=== PATIENT | male | born 1945 | race Caucasian/White ===

== ENCOUNTER 2016-09-20 20:28 | Observation (INO) ==
[2016-09-20 21:02] LABS: Basophils % 0.7 %; Eosinophils # 0.5 K/mcL (0.0-0.6); Eosinophils % 11.1 %; Hematocrit 38.4 % (37.5-50.1); Hemoglobin 13.1 g/dL (12.9-16.9); Immature Granulocytes % 0.5 % (0-4); Lymphocytes # 1.3 K/mcL (0.6-4.6); Lymphocytes % 30.4 %; Mean Corpuscular HGB Conc 34.1 g/dL (31.6-35.5); Mean Corpuscular Hemoglobin 30.7 pg (28.0-33.3); Mean Corpuscular Volume 89.9 fL (83.0-100.0); Mean Platelet Volume 9.5 fL (9.4-12.4); Monocytes # 0.3 K/mcL (0.0-1.3); Neutrophils # 2.2 K/mcL (1.6-8.9); Platelet Count 218 K/mcL (140-400); Red Blood Count 4.27 M/mcL (4.19-5.50); Red Cell Distribution Width 13.2 % (11.5-14.5); Segmented Neutrophils % 51.3 %
[2016-09-20 21:11] LABS: Activated Partial Thrombo Time 31.1 Seconds (26.0-36.0)
--- NOTE | 2016-09-20 21:13 | Emergency Department Note ---
Disposition Clinical Impression: Acute exacerbation of chronic obstructive airways disease Disposition: Admitted As Inpatient Condition: Good Time of Disposition: 21:33 (zia obsv) SOB HPI - General Chief Complaint: ED Shortness of Breath/Dyspnea Stated Complaint: shortness of breath Time Seen by Provider: 09/20/16 20:29 Source: patient, family Mode of arrival: ambulatory Limitations: no limitations Nursing Notes Reviewed: Yes Vital Signs Reviewed: Yes - History of Present Illness Increasing short of breath cough and congestion he was seen earlier this week and been diagnosed with bronchitis early pneumonia but unfortunately was unable take steroids or did not want take steroids because of potential risk of causing hyperglycemia as result the patient though had increasing shortness of breath he has tried outpatient therapy and is failed he is having cough congestion sputum production no diarrhea no melena no dyspnea with activity Pain no tenderness noted Patient done is instructed return to the ER if worsening of condition Pt Subjective Complaint: shortness of breath Onset (ago): day(s) (2) Context: recent illness Severity: none Consistency/Duration: constant Improves with: nothing Worsens with: nothing Known history of: COPD Associated symptoms: Reports: fever, cough, wheezing, sputum production. Denies : chest pain, pain with inspiration, orthopnea, lower extremity pain, polyuria, polydipsia, parasthesias, palpitations, hemoptysis, diaphoresis, nausea/vomiting , syncope, abdominal pain, rash, sense of impending doom Treatment prior to arrival: none Cough present: Yes Cough Description: Non-Productive Cough Frequency: Intermittent Sputum production: Yes Sputum Amount: Small Sputum Color: Yellow - Related Data Home Medications Medication Instructions Recorded Confirmed Gabapentin [Neurontin] 600 mg PO BID 03/04/15 09/13/16 GlipiZIDE [Glucotrol] 5 mg PO 0800 03/04/15 09/13/16 Hydrocodone/Acetaminophen [[place] 1 tab PO Q6H PRN 03/04/15 09/13/16 5-325 Tablet] Liraglutide [Victoza 2-Nash] 1.2 mg SQ DAILY 03/04/15 09/13/16 Lisinopril [Zestril] 2.5 mg PO DAILY 03/04/15 09/13/16 Omeprazole [PriLOSEC] 20 mg PO DAILY 03/04/15 09/13/16 Paroxetine [Paxil] 30 mg PO DAILY 03/04/15 09/13/16 Terazosin [Hytrin] 2 mg PO HS 03/04/15 09/13/16 Oxygen 2 l NS AD 05/07/16 09/13/16 Albuterol Neb [Proventil Neb] 2.5 mg IH Q4H PRN 09/13/16 09/13/16 Albuterol Sulfate [Ventolin Hfa] 2 puff IH Q4H PRN 09/13/16 09/13/16 Atorvastatin [Lipitor] 40 mg PO HS 09/13/16 09/13/16 Fluticasone/Salmeterol [Advair 1 puff IH BID 09/13/16 09/13/16 500-50 Diskus] Pramipexole [Mirapex] 0.25 mg PO DAILY 09/13/16 09/13/16 Roflumilast [Daliresp] 500 mcg PO DAILY 09/13/16 09/13/16 Umeclidinium [place] [Incruse 1 puff IH DAILY 09/13/16 09/13/16 Ellipta] Allergies Allergy/AdvReac Type Severity Reaction Status Date / Time risperidone [From Risperdal] Allergy Drowsy Verified 05/07/16 11:36 tramadol Allergy Drowsy Verified 05/07/16 11:36 All systems ED: reviewed and negative except as stated. Constitutional: Denies: fever, chills, weakness Eyes: Denies: eye pain, eye discharge ENT ED: Denies: ear pain Cardiovascular: Denies: chest pain Respiratory: Reports: cough, dyspnea, wheezes, sputum production Gastrointestinal: Denies: abdominal pain, nausea, vomiting Genitourinary: Denies: urgency Musculoskeletal: Denies: back pain Integumentary: Denies: rash Neurological: Denies: headache Psychiatric: Denies: anxiety Endocrine: Denies: fatigue Hematological/Lymphatic: Denies: easy bleeding Allergic/Immunologic: Denies: facial swelling Past Medical History - Past Medical History Attestation: Yes The following information was validated with the patient. Source: patient, old records reviewed, nursing notes reviewed Medical history: Reports: arthritis, COPD, diabetes, fibromyalgia, GERD, hyperlipidemia, hypertension, osteoporosis, renal disease, other Surgical history: Reports: appendectomy, cholecystectomy, orthopedic, other ( Right carpal tunnel surgery.), prostatectomy (s/p TURP), other Psychiatric history: Reports: anxiety, depression, other - Social History Smoking Status: Heavy tobacco smoker Smokeless Tobacco Status: No Alcohol use: Reports: none Drug use: Reports: none Physical Exam - General Limitations: no limitations General appearance: alert, in no apparent distress, anxious - Head Head exam: atraumatic, normocephalic, normal inspection - Eye Eye exam: Present: normal appearance, PERRL, EOMI - ENT ENT exam: normal exam, normal oropharynx, mucous membranes moist, normal external ear exam - Neck Neck exam: Present: normal inspection, full ROM, trachea midline - Chest Chest inspection: Present: normal inspection, symmetric chest wall rise - Respiratory Respiratory exam: Present: wheezes, accessory muscle use, prolonged expiratory phase - Cardiovascular Cardiovascular exam: Present: regular rate, normal rhythm, normal heart sounds - Abdominal Exam Abdominal exam: Present: soft, Non-Tender, normal bowel sounds - Extremities Exam Extremities exam: Present: normal inspection, full ROM, normal capillary refill. Absent: tenderness, joint swelling - Back Exam Back exam: Present: normal inspection, full ROM. Absent: muscle spasm - Neurological Exam Neurological exam: Present: alert, oriented X3, CN II-XII intact - Psychiatric Psychiatric exam: Present: normal affect, normal mood - Skin Skin exam: Present: warm, dry, intact, normal color Course Course Narrative: Seen and examined her for observation antibodic and steroids Vital Signs Temperature 97.7 F 09/20/16 20:29 Pulse Rate 85 09/20/16 20:29 Respiratory Rate 20 09/20/16 20:29 Blood Pressure 142/80 09/20/16 20:29 O2 Sat by Pulse Oximetry 92 09/20/16 20:29 Temperature 98.7 F 09/20/16 21:30 Pulse Rate 80 09/20/16 21:30 Respiratory Rate 24 09/20/16 21:30 Blood Pressure 161/72 09/20/16 21:30 O2 Sat by Pulse Oximetry 94 09/20/16 21:30 Oxygen Delivery Oxygen Delivery Nasal Cannula Shortness of Breath/Dyspnea - Differential Diagnosis Likely: acute exacerbation of chronic obstructive airways disease - Medical Records Medical records reviewed: Yes I reviewed the patient's medical records. - Lab Data Lab results reviewed: Yes I reviewed the patient's lab results. Result diagrams: 09/20/16 20:54 09/20/16 20:54 Lab Results 09/20/16 09/20/16 09/20/16 Range/Units 20:54 20:54 20:54 WBC 4.2 L (4.3-11.1) K/mcL RBC 4.27 (4.19-5.50) M/mcL Hgb 13.1 (12.9-16.9) g/dL Hct 38.4 (37.5-50.1) % MCV 89.9 (83.0-100.0) fL MCH 30.7 (28.0-33.3) pg MCHC 34.1 (31.6-35.5) g/dL RDW 13.2 (11.5-14.5) % Plt Count 218 (140-400) K/mcL MPV 9.5 (9.4-12.4) fL Immature Gran % 0.5 (0-4) % Seg Neutrophils % 51.3 % Lymphocytes % 30.4 % Monocytes % 6.0 % Eosinophils % 11.1 % Basophils % 0.7 % Neutrophils # 2.2 (1.6-8.9) K/mcL Lymphocytes # 1.3 (0.6-4.6) K/mcL Monocytes # 0.3 (0.0-1.3) K/mcL Eosinophils # 0.5 (0.0-0.6) K/mcL Basophils # 0.0 (0.0-0.2) K/mcL PT 11.0 (9.4-12.1) Seconds INR 1.0 APTT 31.1 (26.0-36.0) Seconds Sodium 141 (136-145) mEq/L Potassium 4.2 (3.5-4.5) mEq/L Chloride 105 (98-109) mEq/L Carbon Dioxide 26 (19-29) mEq/L BUN 12 (8-26) mg/dL Creatinine 1.03 (0.72-1.25) mg/dL Est GFR ( Amer) > 60 (> 60) Est GFR (Non-Af Amer) > 60 (> 60) BUN/Creatinine Ratio 12 (6-26) Glucose 96 (70-99) mg/dL Calculated Osmolality 292 (280-300) Calcium 9.0 (8.6-10.8) mg/dL Urine Color (Yellow) Urine Clarity (Clear) Urine pH (5.0-8.0) pH Units Ur Specific [place] (1.010-1.025) Urine Protein (Neg-Trace) mg/dL Urine Glucose (UA) (Normal) mg/dL Urine Ketones (Negative) mg/dL Urine Blood (Negative) Urine Nitrite (Negative) Urine Bilirubin (Negative) Urine Urobilinogen (Normal) mg/dL Ur Leukocyte Esterase (Negative) Urine Microscopic RBC (0-3) per hpf Urine Microscopic WBC Ur Squamous Epith Cells (None-Few) per lpf Ur Culture Indicated? (NO) 09/20/16 Range/Units 21:46 WBC (4.3-11.1) K/mcL RBC (4.19-5.50) M/mcL Hgb (12.9-16.9) g/dL Hct (37.5-50.1) % MCV (83.0-100.0) fL MCH (28.0-33.3) pg MCHC (31.6-35.5) g/dL RDW (11.5-14.5) % Plt Count (140-400) K/mcL MPV (9.4-12.4) fL Immature Gran % (0-4) % Seg Neutrophils % % Lymphocytes % % Monocytes % % Eosinophils % % Basophils % % Neutrophils # (1.6-8.9) K/mcL Lymphocytes # (0.6-4.6) K/mcL Monocytes # (0.0-1.3) K/mcL Eosinophils # (0.0-0.6) K/mcL Basophils # (0.0-0.2) K/mcL PT (9.4-12.1) Seconds INR APTT (26.0-36.0) Seconds Sodium (136-145) mEq/L Potassium (3.5-4.5) mEq/L Chloride (98-109) mEq/L Carbon Dioxide (19-29) mEq/L BUN (8-26) mg/dL Creatinine (0.72-1.25) mg/dL Est GFR ( Amer) (> 60) Est GFR (Non-Af Amer) (> 60) BUN/Creatinine Ratio (6-26) Glucose (70-99) mg/dL Calculated Osmolality (280-300) Calcium (8.6-10.8) mg/dL Urine Color Yellow (Yellow) Urine Clarity Clear (Clear) Urine pH 6.0 (5.0-8.0) pH Units Ur Specific [place] 1.010 (1.010-1.025) Urine Protein Negative (Neg-Trace) mg/dL Urine Glucose (UA) Normal (Normal) mg/dL Urine Ketones Negative (Negative) mg/dL Urine Blood Trace-intact H (Negative) Urine Nitrite Negative (Negative) Urine Bilirubin Negative (Negative) Urine Urobilinogen Normal (Normal) mg/dL Ur Leukocyte Esterase Negative (Negative) Urine Microscopic RBC 3-5 H (0-3) per hpf Urine Microscopic WBC Test Not Performed Ur Squamous Epith Cells Few (None-Few) per lpf Ur Culture Indicated? NO (NO) - Radiology Data Radiology results reviewed: Yes I reviewed the patient's radiology results. Critical Care Time Critical Care Time: No
[2016-09-20 21:17] LABS: BUN/Creatinine Ratio 12 (6-26); Blood Urea Nitrogen 12 mg/dL (8-26); Carbon Dioxide 26 mEq/L (19-29); Chloride 105 mEq/L (98-109); Glucose 96 mg/dL (70-99); Osmolality,Calculated 292 (280-300); Potassium 4.2 mEq/L (3.5-4.5); Sodium 141 mEq/L (136-145); eGFR For African Americans > 60 (> 60); eGFR For Non-African Americans > 60 (> 60)
[2016-09-20 21:58] LABS: Bilirubin,Urine Negative (Negative); Blood,Urine Trace-intact (Negative); Clarity,Urine Clear (Clear); Color,Urine Yellow (Yellow); Glucose,Urine (UA) Normal (Normal); Ketones,Urine Negative (Negative); Leukocyte Esterase,Urine Negative (Negative); Nitrite,Urine Negative (Negative); Protein,Urine Negative (Neg-Trace); Urobilinogen,Urine Normal (Normal)
[2016-09-20 22:08] LABS: Squamous Epithelial Cell,Urine Few per lpf (None-Few)
[2016-09-20] MEDS ORDERED: Naloxone 0.4 MG/ML INJ IVP PRN (23:52)
[2016-09-20] MEDS ORDERED: NON-FORMULARY MEDICATION 1 EACH EACH (Oxygen [Oxygen] 2 L) NS SCH (23:52)
[2016-09-20] MEDS ORDERED: 0.9 % Sodium Chloride 1,000 ML IVC SCH (23:52)
[2016-09-20] MEDS ORDERED: Ondansetron 4 MG/2 ML VIAL IVP PRN (23:52)
[2016-09-20] MEDS ORDERED: *HR* Dextrose 50 % in Water (Syg) 50 ML SYRINGE IVP PRN (23:52)
[2016-09-20] MEDS ORDERED: D5% in Water 1,000 ML IVC PRN (23:52)
[2016-09-20] MEDS ORDERED: Albuterol 2.5 MG/3 ML NEBULIZER IH PRN (23:52)
[2016-09-20] MEDS ORDERED: Azithromycin 500 MG in D5% in Water 250 ML IVPB SCH (23:52)
[2016-09-20] MEDS ORDERED: *HR* HYDROcodone/Acet 5/325 mg TABLET PO PRN (23:52)
[2016-09-20] MEDS ORDERED: Dextrose Gel 15 GM PO PRN ×2 (23:52)
[2016-09-21] MEDS: Ipratropium/Albuterol Neb 3 ML IH SCH ×3 (01:07→11:29)
[2016-09-21 05:46] LABS: Basophils % 0.4 %; Eosinophils # 0.1 K/mcL (0.0-0.6); Eosinophils % 1.1 %; Hematocrit 40.9 % (37.5-50.1); Hemoglobin 13.8 g/dL (12.9-16.9); Immature Granulocytes % 0.7 % (0-4); Lymphocytes # 0.4 K/mcL (0.6-4.6); Lymphocytes % 6.2 %; Mean Corpuscular HGB Conc 33.7 g/dL (31.6-35.5); Mean Corpuscular Hemoglobin 30.5 pg (28.0-33.3); Mean Corpuscular Volume 90.3 fL (83.0-100.0); Monocytes # 0.1 K/mcL (0.0-1.3); Monocytes % 1.1 %; Neutrophils # 5.1 K/mcL (1.6-8.9); Platelet Count 222 K/mcL (140-400); Red Blood Count 4.53 M/mcL (4.19-5.50); Segmented Neutrophils % 90.5 %
[2016-09-21 05:55] LABS: Prothrombin Time 11.1 Seconds (9.4-12.1)
[2016-09-21 05:57] LABS: Activated Partial Thrombo Time 32.6 Seconds (26.0-36.0)
[2016-09-21 06:05] LABS: BUN/Creatinine Ratio 14 (6-26); Blood Urea Nitrogen 16 mg/dL (8-26); Carbon Dioxide 24 mEq/L (19-29); Chloride 103 mEq/L (98-109); Glucose 124 mg/dL (70-99); Osmolality,Calculated 293 (280-300); Potassium 4.2 mEq/L (3.5-4.5); Sodium 140 mEq/L (136-145); eGFR For African Americans > 60 (> 60); eGFR For Non-African Americans > 60 (> 60)
[2016-09-21] MEDS ORDERED: *HR* GlipiZIDE 5 MG TABLET PO SCH (08:00)
[2016-09-21] MEDS ORDERED: CefTRIAXone 1,000 MG in D5% in Water (Mini-Bag+) 100 ML IVPB SCH (09:00)
[2016-09-21] MEDS ORDERED: Gabapentin 300 MG CAPSULE PO SCH (09:00)
[2016-09-21] MEDS: Insulin LISPRO 300 UNITS/3 ML VIAL SQ SCH ×2 (09:31→12:22)
--- NOTE | 2016-09-21 14:27 | Internal Med History&Physical ---
Date of Encounter: 09/21/16 Time of Encounter: 14:00 Assessment and Plan (1) Acute exacerbation of chronic obstructive airways disease Current visit: Yes Status: Acute He was started on Rocephin, Zithromax, and Solu-Medrol through emergency room. Internal Medicine - H&P: HPI Chief complaint: Dyspnea Admitted From: Home Plans for Post Hospital Care: Home History of present illness: Mr. Brady is a 71 year old male who came to emergency room stating he had dyspnea onset 1 week previous. It had improved after he received treatment in emergency room September 13. It seemed to worsen again the evening of September 19. He came to emergency room and was evaluated and felt to have exacerbation of COPD. He was admitted to [facility] floor for ongoing care needs. He states his dyspnea has improved significantly and he feels back to his baseline. He states he has had a slight cough productive of occasional yellow sputum. His respiratory history significant for having smoked from age [age] up to 5 packs per day. He states he had PFTs at [facility] approximately 2002 but does not know results. He wears oxygen 24/7 for COPD. He thinks he has been tested for SIMON in the past but does not wear CPAP/BiPAP. He had chest CT August 2016 which showed no evidence of malignancy. Past Med Surg Social Fam HX - Past Medical History Medical history: arthritis, COPD, diabetes, fibromyalgia, GERD, hyperlipidemia, hypertension, osteoporosis, renal disease Psychiatric history: anxiety, depression, other - Past Surgical History Surgical History: appendectomy, cholecystectomy, prostatectomy - Social History Smoking Status: Heavy tobacco smoker Packs per day: 3 Smokeless Tobacco Status: No Alcohol use: none Drug use: none Internal Medicine - H&P: Meds Gabapentin [Neurontin] 600 mg PO BID 03/04/15 [History] GlipiZIDE [Glucotrol] 5 mg PO 0800 03/04/15 [History] Hydrocodone/Acetaminophen [[place] 5-325 Tablet] 1 tab PO Q6H PRN 03/04/15 [ History] Liraglutide [Victoza 2-Nash] 1.2 mg SQ DAILY 03/04/15 [History] Lisinopril [Zestril] 2.5 mg PO DAILY 03/04/15 [History] Omeprazole [PriLOSEC] 20 mg PO DAILY 03/04/15 [History] Paroxetine [Paxil] 30 mg PO DAILY 03/04/15 [History] Terazosin [Hytrin] 2 mg PO HS 03/04/15 [History] Oxygen 2 l NS AD 05/07/16 [History] Albuterol Neb [Proventil Neb] 2.5 mg IH Q4H PRN 09/13/16 [History] Albuterol Sulfate [Ventolin Hfa] 2 puff IH Q4H PRN 09/13/16 [History] Atorvastatin [Lipitor] 40 mg PO HS 09/13/16 [History] Fluticasone/Salmeterol [Advair 500-50 Diskus] 1 puff IH BID 09/13/16 [History] Pramipexole [Mirapex] 0.25 mg PO DAILY 09/13/16 [History] Roflumilast [Daliresp] 500 mcg PO DAILY 09/13/16 [History] Umeclidinium [place] [Incruse Ellipta] 1 puff IH DAILY 09/13/16 [History] Allergies risperidone [From Risperdal] Allergy (Verified 05/07/16 11:36) Drowsy tramadol Allergy (Verified 05/07/16 11:36) Drowsy All Systems PM: A 10-system review of systems was performed and is negative for pertinent findings except as documented above in the HPI. Review of systems: Gen.: His weight has decreased from approximately 96 kg at a February 2015 [facility] hospitalization to 83.461 kg today. Cardiovascular: He has history of hypertension but denies ND heart failure angina DVT or pulmonary embolus. He claims he had a heart catheter approximate 2008 which was unremarkable. Respiratory: As per history of present illness GI: He has been told he has an enlarged liver and he has occasional GERD symptoms. He is status post appendectomy and cholecystectomy. He denies disorder with his exocrine pancreas. : He has had hematuria in the past with urinary tract infections. He has BPH and had TUR approximately 2002. He has been diagnosed with CKD3 and follows with a nephrology practice in [place]. Neurologic: He denies large distribution strokes or seizures. Endocrine: He was diagnosed with DM 2 approximately 1997. He has hyperlipidemia and vitamin D deficiency but no known thyroid disease. Hematology oncology: He has had no history of blood disorders or cancers. He was found to be anemic in the emergency room February 2015 which has resolved [place] skeletal: He has a diagnosis of DJD and fibromyalgia. He is uncertain if he has osteoporosis. Psychiatric: He has a history of depression but no significant anxiety. - Constitutional Vitals: Temp Pulse Resp BP Pulse Ox 97.5 F L 80 18 108/57 95 09/21/16 11:25 09/21/16 11:25 09/21/16 11:25 09/21/16 11:25 09/21/16 11:25 Exam: Gen.: He is a well-developed well-nourished male who appears in no severe distress at present time HEENT: Head is atraumatic and normocephalic. Eyes: EOMI. There is no scleral icterus. Mouth: Mucosa is moist. Neck: Supple and nontender. There is no thyromegaly or adenopathy noted. Heart: Regular without murmurs gallops or ectopics Lungs: No wheezes or crackles are heard Abdomen: Soft and nontender. No masses or guarding noted. Has a well-healed longitudinal right paramedian surgical scar Extremities: There is no cyanosis edema or clubbing noted. Dorsalis pedis and posttibial pulses are 1-2 over 2 bilaterally. Neurologic: Mental status: He is talkative and a good historian. Cranial nerves : Smile is symmetric. Forehead wrinkles bilaterally. Tongue protrudes midline. EOMI. Motor: There is no pronator drift. Cerebellar: Finger to nose is intact bilaterally. Skin: Warm and dry Internal Med - H&P Results - Labs CBC & Chem 7: 09/21/16 05:00 09/21/16 05:00 Labs: Short CBC 09/21/16 Range/Units 05:00 WBC 5.6 (4.3-11.1) K/mcL Hgb 13.8 (12.9-16.9) g/dL Hct 40.9 (37.5-50.1) % Plt Count 222 (140-400) K/mcL Neutrophils # 5.1 (1.6-8.9) K/mcL BMP 09/21/16 05:00 Sodium 140 Potassium 4.2 Chloride 103 Carbon Dioxide 24 BUN 16 Creatinine 1.13 Glucose 124 H Calcium 9.0
--- NOTE | 2016-09-21 14:44 | Discharge Summary ---
Date of Encounter: 09/21/16 Time of Encounter: 14:00 - Discharge Diagnosis (1) Acute exacerbation of chronic obstructive airways disease Priority: Primary Status: Acute - Discharge Medications Prescriptions: Cefuroxime PO [Ceftin] 500 mg PO Q12HR #4 tablet Azithromycin [Zithromax] 250 mg PO DAILY #2 tablet Lactobacillus [Culturelle] 1 each PO BID #4 cap.[email or web address] Home Medications: Gabapentin [Neurontin] 600 mg PO BID 03/04/15 [History] GlipiZIDE [Glucotrol] 5 mg PO 0800 03/04/15 [History] Hydrocodone/Acetaminophen [[place] 5-325 Tablet] 1 tab PO Q6H PRN 03/04/15 [ History] Liraglutide [Victoza 2-Nash] 1.2 mg SQ DAILY 03/04/15 [History] Lisinopril [Zestril] 2.5 mg PO DAILY 03/04/15 [History] Omeprazole [PriLOSEC] 20 mg PO DAILY 03/04/15 [History] Paroxetine [Paxil] 30 mg PO DAILY 03/04/15 [History] Terazosin [Hytrin] 2 mg PO HS 03/04/15 [History] Oxygen 2 l NS AD 05/07/16 [History] Albuterol Neb [Proventil Neb] 2.5 mg IH Q4H PRN 09/13/16 [History] Albuterol Sulfate [Ventolin Hfa] 2 puff IH Q4H PRN 09/13/16 [History] Atorvastatin [Lipitor] 40 mg PO HS 09/13/16 [History] Fluticasone/Salmeterol [Advair 500-50 Diskus] 1 puff IH BID 09/13/16 [History] Pramipexole [Mirapex] 0.25 mg PO DAILY 09/13/16 [History] Roflumilast [Daliresp] 500 mcg PO DAILY 09/13/16 [History] Umeclidinium [place] [Incruse Ellipta] 1 puff IH DAILY 09/13/16 [History] Azithromycin [Zithromax] 250 mg PO DAILY #2 tablet 09/21/16 [Rx] Cefuroxime PO [Ceftin] 500 mg PO Q12HR #4 tablet 09/21/16 [Rx] Lactobacillus [Culturelle] 1 each PO BID #4 cap.sprink 09/21/16 [Rx] Allergies/Adverse Reactions: Allergies risperidone [From Risperdal] Allergy (Verified 05/07/16 11:36) Drowsy tramadol Allergy (Verified 05/07/16 11:36) Drowsy Date of admission: 09/20/16 22:35 Primary care physician: Perla Gao - Patient Status Disposition: Home, Self-Care Condition: Good Overall status at discharge: patient is progressing back to baseline - Discharge Instructions Follow Up With: Perla Gao MD [Primary Care Provider] - - Diet and Activity Activity: resume usual activities as tolerated Diet: advance to your usual diet Hospital course: Mr. Brady is a 71 year old male who came to emergency room stating he had dyspnea onset 1 week previous. It had improved after he received treatment in emergency room September 13. It seemed to worsen again the evening of September 19. He came to emergency room and was evaluated and felt to have exacerbation of COPD. He was admitted to [facility] for ongoing care needs. Initial orders were written by the emergency room physician. I saw him on September 21 and performed a history physical and discharge. He received Rocephin Zithromax, and Solu-Medrol through emergency room. When I saw him he stated his breathing was back to his baseline and denied any pain. He did not cough during examination. He wished to be discharged home which I felt was reasonable. He will follow with his PCP Dr. Gao within 1 week. I will give him 2 additional days of antibiotics and probiotic. - Time Spent with Patient Total time spent providing and/or coordinating discharge services: - Constitutional Vitals: Temp Pulse Resp BP Pulse Ox 97.5 F L 80 18 108/57 95 09/21/16 11:25 09/21/16 11:25 09/21/16 11:25 09/21/16 11:25 09/21/16 11:25
[2016-09-21] MEDS ORDERED: Azithromycin 500 MG in D5% in Water 250 ML IVPB SCH (23:00)
[2016-09-24 08:34] VITALS: BP 108/57
== END 2016-09-21 15:33 | disposition home or self-care (01) ==
LOC: EMEROOPIK 20:28 → INPPIK 20:28
PROVIDERS: ADMIT Internal Medicine; ATTEND Internal Medicine

== ENCOUNTER 2016-11-21 16:05 | Observation (INO) ==
[2016-11-21] MEDS ORDERED: Albuterol 2.5 MG/3 ML NEBULIZER IH ONE (16:21)
[2016-11-21] MEDS ORDERED: 0.9 % Sodium Chloride 1,000 ML IVC ONE (16:21)
[2016-11-21] MEDS ORDERED: Azithromycin 500 MG in D5% in Water 250 ML IVPB ONE (16:21)
[2016-11-21] MEDS ORDERED: methylPREDNISolone 125 MG/2 ML VIAL IVP ONE (16:21)
[2016-11-21] MEDS ORDERED: Ipratropium/Albuterol Neb 3 ML IH ONE ×3 (16:21→17:35)
--- NOTE | 2016-11-21 16:24 | Emergency Department Note ---
Disposition Clinical Impression: COPD with exacerbation, Acute exacerbation of chronic obstructive airways disease Disposition: Admitted As Inpatient Condition: Fair Referrals: Perla Gao MD [Primary Care Provider] - Forms: ED Satisfaction Letter Time of Disposition: 17:27 SOB HPI - General Chief Complaint: ED Shortness of Breath/Dyspnea Stated Complaint: MARGARITA Source: EMS Limitations: no limitations - History of Present Illness Patient presents to emergency department for evaluation of shortness of breath. He states that he is had a cough wheeze and shortness of breath for the past 2 weeks though it is worsened over the past 2 days. He states that the cough is productive of yellow sputum. He is also had wheezing. He denies associated chest pain nausea vomiting or diaphoresis. He denies lower extremity edema or calf discomfort. He denies history of DVT or PE. Denies recent antibiotic use her steroid use. His SPO2 is 86% on his home 2 L when EMS picked him up, they gave him a DuoNeb treatment and increases O2 to 3 L with improvement of his oxygen saturation. - Related Data Home Medications Medication Instructions Recorded Confirmed Gabapentin [Neurontin] 600 mg PO BID 03/04/15 11/21/16 GlipiZIDE [Glucotrol] 5 mg PO 0800 03/04/15 11/21/16 Hydrocodone/Acetaminophen [[place] 1 tab PO Q6H PRN 03/04/15 11/21/16 5-325 Tablet] Liraglutide [Victoza 2-Nash] 1.2 mg SQ DAILY 03/04/15 11/21/16 Lisinopril [Zestril] 2.5 mg PO DAILY 03/04/15 11/21/16 Omeprazole [PriLOSEC] 20 mg PO DAILY 03/04/15 11/21/16 Paroxetine [Paxil] 30 mg PO DAILY 03/04/15 11/21/16 Terazosin [Hytrin] 2 mg PO HS 03/04/15 11/21/16 Oxygen 2 l NS AD 05/07/16 11/21/16 Albuterol Neb [Proventil Neb] 2.5 mg IH Q4H PRN 09/13/16 11/21/16 Albuterol Sulfate [Ventolin Hfa] 2 puff IH Q4H PRN 09/13/16 11/21/16 Atorvastatin [Lipitor] 40 mg PO HS 09/13/16 11/21/16 Fluticasone/Salmeterol [Advair 1 puff IH BID 09/13/16 11/21/16 500-50 Diskus] Pramipexole [Mirapex] 0.25 mg PO DAILY 09/13/16 11/21/16 Roflumilast [Daliresp] 500 mcg PO DAILY 09/13/16 11/21/16 Allergies Allergy/AdvReac Type Severity Reaction Status Date / Time risperidone [From Risperdal] Allergy Drowsy Verified 05/07/16 11:36 tramadol Allergy Drowsy Verified 05/07/16 11:36 Constitutional: Denies: fever, chills, weakness Eyes: Denies: eye pain, eye discharge, vision change ENT ED: Denies: ear pain, throat pain Cardiovascular: Denies: chest pain, palpitations Respiratory: Reports: cough, dyspnea, wheezes, sputum production. Denies: hemoptysis Gastrointestinal: Denies: abdominal pain, nausea, vomiting, melena, hematochezia Genitourinary: Denies: urgency, dysuria, frequency Musculoskeletal: Denies: back pain, neck pain Integumentary: Denies: rash Neurological: Denies: headache Psychiatric: Denies: anxiety Past Medical History - Past Medical History Medical history: Reports: arthritis, COPD, diabetes, fibromyalgia, GERD, hyperlipidemia, hypertension, osteoporosis, renal disease Surgical history: Reports: appendectomy, cholecystectomy, prostatectomy Psychiatric history: Reports: anxiety, depression, other - Social History Smoking Status: Heavy tobacco smoker Smokeless Tobacco Status: No Alcohol use: Reports: occasionally Drug use: Reports: none Physical Exam - General Limitations: no limitations General appearance: alert, in no apparent distress (Patient resting currently speaking in full sentences) - Head Head exam: atraumatic - Eye Eye exam: Present: normal appearance, PERRL. Absent: scleral icterus, conjunctival injection - ENT ENT exam: normal exam, mucous membranes moist, TM's normal bilaterally - Neck Neck exam: Present: normal inspection. Absent: meningismus - Respiratory Respiratory exam: Present: wheezes. Absent: respiratory distress, accessory muscle use, prolonged expiratory phase - Cardiovascular Cardiovascular exam: Present: regular rate, normal rhythm, normal heart sounds - Abdominal Exam Abdominal exam: Present: soft, Non-Tender - Extremities Exam Extremities exam: Present: normal inspection, full ROM, normal capillary refill. Absent: tenderness, pedal edema, joint swelling, calf tenderness - Back Exam Back exam: Present: normal inspection. Absent: tenderness - Neurological Exam Neurological exam: Present: alert, oriented X3. Absent: motor sensory deficit - Skin Skin exam: Present: warm, dry, intact Course Vital Signs Temperature 100.4 F H 11/21/16 16:08 Pulse Rate 106 11/21/16 16:08 Respiratory Rate 22 11/21/16 16:08 Blood Pressure 91/51 11/21/16 16:08 O2 Sat by Pulse Oximetry 91 11/21/16 16:08 Temperature 100.4 F H 11/21/16 16:08 Pulse Rate 114 11/21/16 16:57 Respiratory Rate 22 11/21/16 16:57 Blood Pressure 133/68 11/21/16 16:57 O2 Sat by Pulse Oximetry 90 11/21/16 16:57 Oxygen Delivery Oxygen Delivery Nasal Cannula Shortness of Breath/Dyspnea - MDM Narrative Medical decision making narrative: Patient currently resting comfortably. SPO2 98% on 3 L. Blood pressure 120/ 61. Patient will be admitted for ongoing evaluation and treatment of his COPD exacerbation. There is no evidence of acute cardiac event. No indication of PE. Patient does not meet sepsis criteria. There is no pneumonia. - Lab Data Lab results reviewed: Yes I reviewed the patient's lab results. Result diagrams: 11/21/16 16:35 11/21/16 16:35 Lab Results 11/21/16 11/21/16 11/21/16 Range/Units 16:35 16:35 16:35 WBC 10.1 (4.3-11.1) K/mcL RBC 4.29 (4.19-5.50) M/mcL Hgb 13.4 (12.9-16.9) g/dL Hct 40.8 (37.5-50.1) % MCV 95.1 (83.0-100.0) fL MCH 31.2 (28.0-33.3) pg MCHC 32.8 (31.6-35.5) g/dL RDW 13.7 (11.5-14.5) % Plt Count 169 (140-400) K/mcL MPV 10.4 (9.4-12.4) fL Immature Gran % 0.3 (0-4) % Seg Neutrophils % 86.0 % Lymphocytes % 7.3 % Monocytes % 6.0 % Eosinophils % 0.1 % Basophils % 0.3 % Neutrophils # 8.7 (1.6-8.9) K/mcL Lymphocytes # 0.7 (0.6-4.6) K/mcL Monocytes # 0.6 (0.0-1.3) K/mcL Eosinophils # 0.0 (0.0-0.6) K/mcL Basophils # 0.0 (0.0-0.2) K/mcL PT 12.7 H (9.4-12.1) Seconds INR 1.2 APTT 30.9 (26.0-36.0) Seconds VBG Lactic Acid (0.5-2.2) mmol/L Sodium 141 (136-145) mEq/L Potassium 4.0 (3.5-4.5) mEq/L Chloride 102 (98-109) mEq/L Carbon Dioxide 28 (19-29) mEq/L BUN 23 (8-26) mg/dL Creatinine 1.22 (0.72-1.25) mg/dL Est GFR ( Amer) > 60 (> 60) Est GFR (Non-Af Amer) 58 L (> 60) BUN/Creatinine Ratio 19 (6-26) Glucose 137 H (70-99) mg/dL Calculated Osmolality 298 (280-300) Calcium 9.3 (8.6-10.8) mg/dL Total Bilirubin 0.7 (0.2-1.2) mg/dL Direct Bilirubin 0.3 (0.0-0.5) mg/dL Indirect Bilirubin 0.4 (0.0-1.2) mg/dL AST 10 (5-34) Units/L ALT 10 (0-55) Units/L Alkaline Phosphatase 49 (38-126) Units/L Troponin I (0-0.03) ng/mL B-Natriuretic Peptide (0-100) pg/mL Serum Total Protein 6.4 (6.0-8.3) g/dL Albumin 3.0 L (3.5-5.0) g/dL Globulin 3.4 (2.4-3.5) g/dL Albumin/Globulin Ratio 0.9 L (1.1-2.2) 11/21/16 11/21/16 11/21/16 Range/Units 16:35 16:35 16:35 WBC (4.3-11.1) K/mcL RBC (4.19-5.50) M/mcL Hgb (12.9-16.9) g/dL Hct (37.5-50.1) % MCV (83.0-100.0) fL MCH (28.0-33.3) pg MCHC (31.6-35.5) g/dL RDW (11.5-14.5) % Plt Count (140-400) K/mcL MPV (9.4-12.4) fL Immature Gran % (0-4) % Seg Neutrophils % % Lymphocytes % % Monocytes % % Eosinophils % % Basophils % % Neutrophils # (1.6-8.9) K/mcL Lymphocytes # (0.6-4.6) K/mcL Monocytes # (0.0-1.3) K/mcL Eosinophils # (0.0-0.6) K/mcL Basophils # (0.0-0.2) K/mcL PT (9.4-12.1) Seconds INR APTT (26.0-36.0) Seconds VBG Lactic Acid 2.0 (0.5-2.2) mmol/L Sodium (136-145) mEq/L Potassium (3.5-4.5) mEq/L Chloride (98-109) mEq/L Carbon Dioxide (19-29) mEq/L BUN (8-26) mg/dL Creatinine (0.72-1.25) mg/dL Est GFR ( Amer) (> 60) Est GFR (Non-Af Amer) (> 60) BUN/Creatinine Ratio (6-26) Glucose (70-99) mg/dL Calculated Osmolality (280-300) Calcium (8.6-10.8) mg/dL Total Bilirubin (0.2-1.2) mg/dL Direct Bilirubin (0.0-0.5) mg/dL Indirect Bilirubin (0.0-1.2) mg/dL AST (5-34) Units/L ALT (0-55) Units/L Alkaline Phosphatase (38-126) Units/L Troponin I 0.03 (0-0.03) ng/mL B-Natriuretic Peptide 110 H (0-100) pg/mL Serum Total Protein (6.0-8.3) g/dL Albumin (3.5-5.0) g/dL Globulin (2.4-3.5) g/dL Albumin/Globulin Ratio (1.1-2.2) ITS Impressions Chest X-Ray 11/21/16 16:21 IMPRESSION: No acute process. D/ / Gallo Meza MD / Gallo Meza MD Interpreting Provider: Gallo Meza MD - Radiology Data Radiology results reviewed: Yes I reviewed the patient's radiology results. - EKG Data EKG attestation: Yes I reviewed and interpreted this EKG. Rate: Reports: tachycardia (Sinus tachycardia with a rate of 101. Nonspecific changes without evidence of acute ST segment or T-wave changes.)
[2016-11-21 16:48] LABS: Basophils % 0.3 %; Eosinophils % 0.1 %; Hematocrit 40.8 % (37.5-50.1); Hemoglobin 13.4 g/dL (12.9-16.9); Immature Granulocytes % 0.3 % (0-4); Lymphocytes # 0.7 K/mcL (0.6-4.6); Lymphocytes % 7.3 %; Mean Corpuscular HGB Conc 32.8 g/dL (31.6-35.5); Mean Corpuscular Hemoglobin 31.2 pg (28.0-33.3); Mean Corpuscular Volume 95.1 fL (83.0-100.0); Mean Platelet Volume 10.4 fL (9.4-12.4); Monocytes # 0.6 K/mcL (0.0-1.3); Neutrophils # 8.7 K/mcL (1.6-8.9); Platelet Count 169 K/mcL (140-400); Red Blood Count 4.29 M/mcL (4.19-5.50); Red Cell Distribution Width 13.7 % (11.5-14.5)
[2016-11-21 16:53] LABS: INR 1.2; Prothrombin Time 12.7 Seconds (9.4-12.1)
[2016-11-21 16:56] LABS: Activated Partial Thrombo Time 30.9 Seconds (26.0-36.0)
[2016-11-21 17:05] LABS: Alanine Aminotransferase 10 Units/L (0-55); Albumin/Globulin Ratio 0.9 (1.1-2.2); Alkaline Phosphatase 49 Units/L (38-126); Aspartate Amino Transferase 10 Units/L (5-34); BUN/Creatinine Ratio 19 (6-26); Bilirubin,Direct 0.3 mg/dL (0.0-0.5); Bilirubin,Indirect 0.4 mg/dL (0.0-1.2); Bilirubin,Total 0.7 mg/dL (0.2-1.2); Blood Urea Nitrogen 23 mg/dL (8-26); Calcium 9.3 mg/dL (8.6-10.8); Carbon Dioxide 28 mEq/L (19-29); Chloride 102 mEq/L (98-109); Globulin 3.4 g/dL (2.4-3.5); Glucose 137 mg/dL (70-99); Osmolality,Calculated 298 (280-300); Sodium 141 mEq/L (136-145); Total Protein 6.4 g/dL (6.0-8.3); eGFR For African Americans > 60 (> 60); eGFR For Non-African Americans 58 (> 60)
[2016-11-21] MEDS ORDERED: Naloxone 0.4 MG/ML INJ IVP PRN (17:28)
[2016-11-21] MEDS ORDERED: Albuterol 2.5 MG/3 ML NEBULIZER IH PRN (18:22)
[2016-11-21] MEDS ORDERED: *HR* Dextrose 50 % in Water (Syg) 50 ML SYRINGE IVP PRN (18:35)
[2016-11-21] MEDS ORDERED: D5% in Water 1,000 ML IVC PRN (18:35)
[2016-11-21] MEDS ORDERED: Dextrose Gel 15 GM PO PRN ×2 (18:35)
[2016-11-21] MEDS: Gabapentin 300 MG CAPSULE PO SCH (21:10)
[2016-11-21] MEDS: *HR* HYDROcodone/Acet 5/325 mg TABLET PO PRN (21:16)
[2016-11-21] MEDS: Budesonide/Formoterol 160/4.5 MDI IH SCH (22:32)
[2016-11-21] MEDS: Insulin LISPRO 300 UNITS/3 ML VIAL SQ SCH (23:31)
[2016-11-21] MEDS: methylPREDNISolone 125 MG/2 ML VIAL IVP SCH (23:31)
[2016-11-22] MEDS: methylPREDNISolone 125 MG/2 ML VIAL IVP SCH (04:53)
[2016-11-22 06:14] LABS: Basophils % 0.1 %; Hematocrit 41.6 % (37.5-50.1); Hemoglobin 13.4 g/dL (12.9-16.9); Immature Granulocytes % 0.5 % (0-4); Lymphocytes # 0.4 K/mcL (0.6-4.6); Lymphocytes % 4.3 %; Mean Corpuscular HGB Conc 32.2 g/dL (31.6-35.5); Mean Corpuscular Hemoglobin 31.5 pg (28.0-33.3); Mean Corpuscular Volume 97.7 fL (83.0-100.0); Monocytes # 0.1 K/mcL (0.0-1.3); Monocytes % 1.2 %; Neutrophils # 8.6 K/mcL (1.6-8.9); Platelet Count 129 K/mcL (140-400); Red Blood Count 4.26 M/mcL (4.19-5.50); Red Cell Distribution Width 13.6 % (11.5-14.5); Segmented Neutrophils % 93.9 %
[2016-11-22 06:29] LABS: Albumin 2.8 g/dL (3.5-5.0); BUN/Creatinine Ratio 24 (6-26); Blood Urea Nitrogen 24 mg/dL (8-26); Calcium 9.2 mg/dL (8.6-10.8); Carbon Dioxide 27 mEq/L (19-29); Chloride 102 mEq/L (98-109); Glucose 199 mg/dL (70-99); Osmolality,Calculated 300 (280-300); Phosphorous 3.9 mg/dL (2.3-4.7); Potassium 4.4 mEq/L (3.5-4.5); Sodium 140 mEq/L (136-145); eGFR For African Americans > 60 (> 60); eGFR For Non-African Americans > 60 (> 60)
[2016-11-22 06:30] LABS: BUN/Creatinine Ratio 24 (6-26); Blood Urea Nitrogen 24 mg/dL (8-26); Calcium 9.2 mg/dL (8.6-10.8); Carbon Dioxide 26 mEq/L (19-29); Chloride 103 mEq/L (98-109); Glucose 197 mg/dL (70-99); Osmolality,Calculated 300 (280-300); Potassium 4.4 mEq/L (3.5-4.5); Sodium 140 mEq/L (136-145); eGFR For African Americans > 60 (> 60); eGFR For Non-African Americans > 60 (> 60)
[2016-11-22 07:40] LABS: Platelet Estimate Slight Decrease (Normal)
[2016-11-22] MEDS: Azithromycin 250 MG TABLET PO SCH (08:09)
[2016-11-22] MEDS: Gabapentin 300 MG CAPSULE PO SCH ×2 (08:12→20:07)
[2016-11-22] MEDS: *HR* GlipiZIDE 5 MG TABLET PO SCH (08:12)
[2016-11-22] MEDS: Insulin LISPRO 300 UNITS/3 ML VIAL SQ SCH ×4 (08:22→20:08)
--- NOTE | 2016-11-22 08:57 | Internal Med History&Physical ---
Date of Encounter: 11/22/16 Time of Encounter: 08:53 Assessment and Plan (1) COPD with exacerbation Current visit: Yes Status: Acute Pt with moderate COPD exacerbation. No evidence of consolidation on exam or CXR. Pt is improving with IV antibiotics and IV steroids. Will transition to oral steroid course and continue antibiotic regimen. Will schedule nebulizer treatments. Will consider d/c home tomorrow if pt is approaching baseline. Internal Medicine - H&P: HPI Chief complaint: dyspnea on exertion, cough Admitted From: Emergency Dept Plans for Post Hospital Care: Home History of present illness: Mr. Brady is a 71 year old male with PMH significant for COPD, DM, GERD, and HLD that presented to ED yesterday with 2 week history of productive cough, yellow sputum, and shortness of breath with exertion. Symptoms were progressively worsening 2 days prior to presentation in particular. No fevers, chills, nausea or vomiting. Pt notes SHIELDS was worsening despite his normal 2L home oxygen. EMS was contact and SPO2 was 86% on 2L. Pt was transported to ED for further evaluation. In ED, pt was given breathing treatments, steroids and IV antibiotics for a presumed COPD exacerbation. Pt was then admitted to the med-surg unit for ongoing care needs of his COPD exacerbation. Upon evaluation this morning, pt reports that he feels much better while he is lying in bed. Upon ambulation, pt remains considerably short of breath, much more so than what he is at home despite using 4L of oxygen while ambulating today. Past Med Surg Social Fam HX - Past Medical History Medical history: arthritis, COPD, diabetes, fibromyalgia, GERD, hyperlipidemia, hypertension, osteoporosis, renal disease Psychiatric history: anxiety, depression, other - Past Surgical History Surgical History: appendectomy, cholecystectomy, prostatectomy - Social History Smoking Status: Heavy tobacco smoker Smokeless Tobacco Status: No Alcohol use: occasionally Drug use: none Internal Medicine - H&P: Meds Gabapentin [Neurontin] 600 mg PO BID 03/04/15 [History] GlipiZIDE [Glucotrol] 5 mg PO 0800 03/04/15 [History] Hydrocodone/Acetaminophen [[place] 5-325 Tablet] 1 tab PO Q6H PRN 03/04/15 [ History] Liraglutide [Victoza 2-Nash] 1.2 mg SQ DAILY 03/04/15 [History] Lisinopril [Zestril] 2.5 mg PO DAILY 03/04/15 [History] Omeprazole [PriLOSEC] 20 mg PO DAILY 03/04/15 [History] Paroxetine [Paxil] 30 mg PO DAILY 03/04/15 [History] Terazosin [Hytrin] 2 mg PO HS 03/04/15 [History] Oxygen 2 l NS AD 05/07/16 [History] Albuterol Neb [Proventil Neb] 2.5 mg IH Q4H PRN 09/13/16 [History] Albuterol Sulfate [Ventolin Hfa] 2 puff IH Q4H PRN 09/13/16 [History] Atorvastatin [Lipitor] 40 mg PO HS 09/13/16 [History] Fluticasone/Salmeterol [Advair 500-50 Diskus] 1 puff IH BID 09/13/16 [History] Pramipexole [Mirapex] 0.25 mg PO DAILY 09/13/16 [History] Roflumilast [Daliresp] 500 mcg PO DAILY 09/13/16 [History] Allergies risperidone [From Risperdal] Allergy (Verified 05/07/16 11:36) Drowsy tramadol Allergy (Verified 05/07/16 11:36) Drowsy All Systems PM: A 10-system review of systems was performed and is negative for pertinent findings except as documented above in the HPI. - Constitutional Vitals: Temp Pulse Resp BP Pulse Ox 98.1 F 85 18 123/61 90 11/22/16 06:31 11/22/16 06:31 11/22/16 06:31 11/22/16 06:31 11/22/16 06:31 Exam: Gen: Lying in bed, NAD HEENT: NC, AT Neck: Trachea midline, no mass Pulm: No respiratory distress, decreased breath sounds throughout, mild scattered expiratory wheeze throughout, I:E 1:2, no crackles or egophony CV: Normal S1 and S2, RRR Abdomen: Soft, ND, NT Ext: No C/C/E Neuro: No appreciable motor/sensor deficits Skin: Warm and dry, no rash Psych: A&Ox3 O2 sat 98% on 3L while at rest and 83% on 3L while ambulating Internal Med - H&P Results - Labs CBC & Chem 7: 11/22/16 05:35 11/22/16 05:35 Labs: Short CBC 11/22/16 Range/Units 05:35 WBC 9.2 (4.3-11.1) K/mcL Hgb 13.4 (12.9-16.9) g/dL Hct 41.6 (37.5-50.1) % Plt Count 129 L (140-400) K/mcL Neutrophils # 8.6 (1.6-8.9) K/mcL BMP 11/22/16 11/22/16 05:35 05:35 Sodium 140 140 Potassium 4.4 4.4 Chloride 103 102 Carbon Dioxide 26 27 BUN 24 24 Creatinine 1.02 1.02 Glucose 197 H 199 H Calcium 9.2 9.2 Cardiac Enzymes 11/21/16 11/22/16 Range/Units 22:35 05:35 Troponin I 0.03 0.01 (0-0.03) ng/mL Liver Function 11/22/16 Range/Units 05:35 Albumin 2.8 L (3.5-5.0) g/dL - Impressions ITS Impressions Chest X-Ray 11/21/16 16:21 IMPRESSION: No acute process. D/ / Gallo Meza MD / Gallo Meza MD Interpreting Provider: Gallo Meza MD
[2016-11-22] MEDS ORDERED: (Roflumilast [Daliresp] 500 MCG) PO SCH (09:00)
[2016-11-22] MEDS: Budesonide/Formoterol 160/4.5 MDI IH SCH ×2 (10:11→20:16)
--- NOTE | 2016-11-22 10:55 | Physician Discharge Referral ---
Home Health/Hosp Referral Info Transfer to: Home Health Attending Provider: marely christian Provider in Charge Post Discharge: PCP - Diagnosis (1) COPD with exacerbation Status: Acute - Respiratory Orders Oxygen / L per min (2-3) Smoking Cessation: Smoking cessation has been advised. For more information, call the [place] Tobacco Quit Line at 0-714-PHCF-NOW. - Diet/Nutrition Diet/Nutrition Orders: No Concentrated Sweets - Activity Activity Orders: Up ad preethi - Services Needed Following services are medically necessary services: Nursing, Home Health Aide, Physical Therapy, Occupational Therapy - Transfer Medications Home Medications: Gabapentin [Neurontin] 600 mg PO BID 03/04/15 [History] GlipiZIDE [Glucotrol] 5 mg PO 0800 03/04/15 [History] Hydrocodone/Acetaminophen [[place] 5-325 Tablet] 1 tab PO Q6H PRN 03/04/15 [ History] Liraglutide [Victoza 2-Nash] 1.2 mg SQ DAILY 03/04/15 [History] Lisinopril [Zestril] 2.5 mg PO DAILY 03/04/15 [History] Omeprazole [PriLOSEC] 20 mg PO DAILY 03/04/15 [History] Paroxetine [Paxil] 30 mg PO DAILY 03/04/15 [History] Terazosin [Hytrin] 2 mg PO HS 03/04/15 [History] Oxygen 2 l NS AD 05/07/16 [History] Albuterol Neb [Proventil Neb] 2.5 mg IH Q4H PRN 09/13/16 [History] Albuterol Sulfate [Ventolin Hfa] 2 puff IH Q4H PRN 09/13/16 [History] Atorvastatin [Lipitor] 40 mg PO HS 09/13/16 [History] Fluticasone/Salmeterol [Advair 500-50 Diskus] 1 puff IH BID 09/13/16 [History] Pramipexole [Mirapex] 0.25 mg PO DAILY 09/13/16 [History] Roflumilast [Daliresp] 500 mcg PO DAILY 09/13/16 [History] Allergies/Adverse Reactions: Allergies risperidone [From Risperdal] Allergy (Verified 05/07/16 11:36) Drowsy tramadol Allergy (Verified 05/07/16 11:36) Drowsy Certification: Further, I certify that my clinical findings support that this patient is homebound (i.e. absences from home require considerable and taxing effort and are for medical reasons or restoration services or infrequently or short duration when for other reasons) because: Homebound Reason: Patient requires assistance of a person or device to safely leave home Attestation: My signature below is to certify that this patient is under my care and that I, or nurse practitioner, or a physician's front desk assistant working with me, has a face-to -face encounter with this patient.
[2016-11-22] MEDS: Ipratropium/Albuterol Neb 3 ML IH SCH ×4 (12:53→23:47)
[2016-11-22] MEDS: predniSONE 20 MG TABLET PO SCH (13:20)
[2016-11-22] MEDS: *HR* HYDROcodone/Acet 5/325 mg TABLET PO PRN ×2 (18:59→23:08)
[2016-11-22] MEDS ORDERED: Nicotine 21 MG PATCH.TD24 TD SCH ×2 (21:00→21:45)
[2016-11-23] MEDS: Ipratropium/Albuterol Neb 3 ML IH SCH ×2 (04:11→08:35)
[2016-11-23] MEDS: *HR* HYDROcodone/Acet 5/325 mg TABLET PO PRN (06:41)
[2016-11-23 07:10] VITALS: BP 151/74
[2016-11-23] MEDS: Insulin LISPRO 300 UNITS/3 ML VIAL SQ SCH (07:52)
[2016-11-23] MEDS: Azithromycin 250 MG TABLET PO SCH (07:54)
[2016-11-23] MEDS: *HR* GlipiZIDE 5 MG TABLET PO SCH (07:54)
[2016-11-23] MEDS: predniSONE 20 MG TABLET PO SCH (07:54)
[2016-11-23] MEDS: Gabapentin 300 MG CAPSULE PO SCH (07:56)
--- NOTE | 2016-11-23 08:27 | Discharge Summary ---
Date of Encounter: 11/28/16 Time of Encounter: 08:25 - Discharge Diagnosis (1) COPD with exacerbation Priority: Primary Status: Acute Comments: Resolving and approaching baseline. Pt to complete oral steroid and antibiotic regimen as prescribed. Smoking cessation discussed. (2) Hypertension Priority: Secondary Status: Chronic Comments: Well-controlled. Will continue outpatient regimen. Qualifiers: Hypertension type: essential hypertension Qualified Code(s): I10 - Essential (primary) hypertension (3) CKD (chronic kidney disease) stage 3, GFR 30-59 ml/min Priority: Secondary Status: Chronic Comments: Minimal to no CKD. GFR 58-60 throughout hospital stay. (4) Diabetes type 2, controlled Priority: Secondary Status: Chronic Comments: FSBG elevated throughout hospital stay secondary to steroids administered. Will taper steroids and ask pt to track FSBG at home when off steroids and discuss further with PCP if remain elevated above goal. Will continue outpatient regimen for now. 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 use: without penitentiary use Qualified Code(s): E11.9 - Type 2 diabetes mellitus without complications - Discharge Medications Prescriptions: Azithromycin [Zithromax] 250 mg PO DAILY #2 tablet predniSONE [PredniSONE] 20 mg PO AD #12 tablet Home Medications: Gabapentin [Neurontin] 600 mg PO BID 03/04/15 [History] GlipiZIDE [Glucotrol] 5 mg PO 0800 03/04/15 [History] Hydrocodone/Acetaminophen [[place] 5-325 Tablet] 1 tab PO Q6H PRN 03/04/15 [ History] Liraglutide [Victoza 2-Nash] 1.2 mg SQ DAILY 03/04/15 [History] Lisinopril [Zestril] 2.5 mg PO DAILY 03/04/15 [History] Omeprazole [PriLOSEC] 20 mg PO DAILY 03/04/15 [History] Paroxetine [Paxil] 30 mg PO DAILY 03/04/15 [History] Terazosin [Hytrin] 2 mg PO HS 03/04/15 [History] Oxygen 2 l NS AD 05/07/16 [History] Albuterol Neb [Proventil Neb] 2.5 mg IH Q4H PRN 09/13/16 [History] Albuterol Sulfate [Ventolin Hfa] 2 puff IH Q4H PRN 09/13/16 [History] Atorvastatin [Lipitor] 40 mg PO HS 09/13/16 [History] Fluticasone/Salmeterol [Advair 500-50 Diskus] 1 puff IH BID 09/13/16 [History] Pramipexole [Mirapex] 0.25 mg PO DAILY 09/13/16 [History] Roflumilast [Daliresp] 500 mcg PO DAILY 09/13/16 [History] Azithromycin [Zithromax] 250 mg PO DAILY #2 tablet 11/23/16 [Rx] predniSONE [PredniSONE] 20 mg PO AD #12 tablet 11/23/16 [Rx] Allergies/Adverse Reactions: Allergies risperidone [From Risperdal] Allergy (Verified 05/07/16 11:36) Drowsy tramadol Allergy (Verified 05/07/16 11:36) Drowsy Procedures/tests Complete & Pending: ITS Impressions Chest X-Ray 11/21/16 16:21 IMPRESSION: No acute process. D/ / aGllo Meza MD / Gallo Meza MD Interpreting Provider: Gallo Meza MD - Notes to Outpatient Provider Blood culture were no growth to date at time of discharge. Date of admission: 11/21/16 17:48 Primary care physician: Perla Gao Consults: None Discharging clinician: Riaz Meza Anticipated date of discharge: 11/23/16 - Patient Status Disposition: Home, Self-Care Condition: Good Functional capacity at discharge: independent ambulation Overall status at discharge: patient is progressing back to baseline - Discharge Instructions Instructions: Urinary Tract Infection in Men (DC), Chronic Obstructive Pulmonary Disease (DC) Follow Up With: Perla Gao MD [Primary Care Provider] - 1 week (Unable to make follow up appointment due to weekend. Will call next business day. Follow up appt made for November 28, 2016 @ 2:30pm) - Diet and Activity Activity: increase activity as tolerated Diet: diabetic diet Interval History: Pt reports continued improvement in breathing over last day. Cough and SHIELDS are approaching baseline. He is ambulating well with his home 2L of oxygen. He is eating well and with normal BMs and micturation. Pt is eager for discharge home today. No acute events or issues overnight. Hospital course: Mr. Brady is a 71 year old male that presented to ED with SHIELDS. Pt was diagnosed with a COPD exacerbation and placed on ceftriaxone, azithromycin, IV solumedrol and scheduled nebulizers. He subsequently improved over next 48 hours. One day prior to discharge steroids were changed to oral. On day of discharge, he was ambulating on RA at 86% and 90% on 2L. Pt uses 2L of oxygen at home with activity prior to admission. Pt will be discharged home later today with oral antibiotic and steroid regimen. He is to f/u with PCP within 1 week. Smoking cessation advised. Time spent discussing smoking cessation with patient: 3 to 10 minutes - Time Spent with Patient Total time spent providing and/or coordinating discharge services: Less than 30 minutes - Constitutional Vitals: Temp Pulse Resp BP Pulse Ox 98.3 F 91 16 151/74 94 11/23/16 07:07 11/23/16 07:07 11/23/16 07:07 11/23/16 07:07 11/23/16 07:07 Exam: Gen: Lying in bed, NAD HEENT: NC, AT Neck: Trachea midline, no mass Pulm: No respiratory distress, diminished breath sounds throughout, no wheeze, crackles or egophony CV: Normal S1 and S2, RRR Abdomen: Soft, ND, NT Ext: No C/C/E Neuro: No appreciable motor/sensor deficits Skin: Warm and dry, no rash Psych: A&Ox3
[2016-11-23] MEDS: Budesonide/Formoterol 160/4.5 MDI IH SCH (08:35)
--- NOTE | 2016-11-23 08:55 | Electrocardiograph Report ---
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
== END 2016-11-23 10:20 | disposition home or self-care (01) ==
LOC: INPPIK 16:05 → EMEROOPIK 16:05 → INPPIK 18:36
PROVIDERS: ADMIT Internal Medicine; ATTEND Internal Medicine

== ENCOUNTER 2016-12-27 13:14 | Observation (INO) ==
[2016-12-27] MEDS ORDERED: methylPREDNISolone 125 MG/2 ML VIAL IVP ONE (13:16)
[2016-12-27] MEDS ORDERED: Levofloxacin 750 MG/150 ML 750 MG/150 ML BAG IVPB ONE (13:16)
[2016-12-27] MEDS ORDERED: Ipratropium/Albuterol Neb 3 ML IH ONE (13:16)
--- NOTE | 2016-12-27 13:29 | Emergency Department Note ---
Disposition Clinical Impression: Acute exacerbation of chronic obstructive airways disease Disposition: Admitted As Inpatient Condition: Good Referrals: Perla Gao MD [Primary Care Provider] - Forms: Work/School Release, ED Satisfaction Letter Time of Disposition: 14:11 SOB HPI - General Chief Complaint: ED General Medical Stated Complaint: DON'T FEEL GOOD Source: patient - History of Present Illness Patient presents to the emergency department secondary to increasing shortness of breath and wheezing. Patient had been admitted to the hospital in November and was subsequently discharged to the extended care facility. He is been out of the extended care facility for the past 1-2 weeks. He states that he completed his antibiotic and steroid regimen. He states over the past several days has had increasing shortness of breath with a cough productive of yellow sputum and wheezing. He states he feels generally weak with generalized myalgias. Denies lower extremity edema or calf discomfort. Denies fever. - Related Data Home Medications Medication Instructions Recorded Confirmed Gabapentin [Neurontin] 600 mg PO BID 03/04/15 12/27/16 GlipiZIDE [Glucotrol] 5 mg PO 0800 03/04/15 12/27/16 Hydrocodone/Acetaminophen [Brooks 1 tab PO Q6H PRN 03/04/15 12/27/16 5-325 Tablet] Liraglutide [Victoza 2-Nash] 1.2 mg SQ DAILY 03/04/15 12/27/16 Lisinopril [Zestril] 2.5 mg PO DAILY 03/04/15 12/27/16 Omeprazole [PriLOSEC] 20 mg PO DAILY 03/04/15 12/27/16 Paroxetine [Paxil] 30 mg PO DAILY 03/04/15 12/27/16 Terazosin [Hytrin] 2 mg PO HS 03/04/15 12/27/16 Oxygen 2 l NS AD 05/07/16 12/27/16 Albuterol Neb [Proventil Neb] 2.5 mg IH Q4H PRN 09/13/16 12/27/16 Albuterol Sulfate [Ventolin Hfa] 2 puff IH Q4H PRN 09/13/16 12/27/16 Fluticasone/Salmeterol [Advair 1 puff IH BID 09/13/16 12/27/16 500-50 Diskus] Pramipexole [Mirapex] 0.25 mg PO DAILY 09/13/16 12/27/16 Roflumilast [Daliresp] 500 mcg PO DAILY 09/13/16 12/27/16 Allergies Allergy/AdvReac Type Severity Reaction Status Date / Time risperidone [From Risperdal] Allergy Drowsy Verified 05/07/16 11:36 tramadol Allergy Drowsy Verified 05/07/16 11:36 prednisone AdvReac Agitated Verified 12/27/16 14:09 Constitutional: Reports: weakness. Denies: fever, chills Eyes: Denies: vision change ENT ED: Reports: congestion. Denies: ear pain Cardiovascular: Denies: chest pain, palpitations Respiratory: Reports: cough, dyspnea, wheezes, sputum production. Denies: hemoptysis Gastrointestinal: Denies: abdominal pain, nausea, vomiting, diarrhea Integumentary: Denies: rash Neurological: Denies: headache, numbness, paresthesias, confusion Endocrine: Reports: fatigue Past Medical History - Past Medical History Medical history: Reports: arthritis, COPD, diabetes, fibromyalgia, GERD, hyperlipidemia, hypertension, osteoporosis, renal disease Surgical history: Reports: appendectomy, cholecystectomy, prostatectomy Psychiatric history: Reports: anxiety, depression, other - Social History Smoking Status: Heavy tobacco smoker Smokeless Tobacco Status: No Alcohol use: Reports: rarely Drug use: Reports: none Physical Exam - General Limitations: no limitations General appearance: alert, in no apparent distress - Head Head exam: atraumatic, normocephalic, normal inspection - Eye Eye exam: Present: normal appearance, PERRL, EOMI. Absent: scleral icterus - ENT ENT exam: normal exam, normal oropharynx, mucous membranes moist - Respiratory Respiratory exam: Present: wheezes (Diffuse inspiratory and expiratory wheezes all varela), prolonged expiratory phase. Absent: respiratory distress, accessory muscle use - Cardiovascular Cardiovascular exam: Present: regular rate, normal rhythm, normal heart sounds - Abdominal Exam Abdominal exam: Present: soft, Non-Tender. Absent: tenderness, distention, guarding, rebound, rigidity - Extremities Exam Extremities exam: Present: normal inspection, full ROM. Absent: tenderness, pedal edema, calf tenderness - Neurological Exam Neurological exam: Present: alert, oriented X3, CN II-XII intact - Psychiatric Psychiatric exam: Present: normal affect, normal mood - Skin Skin exam: Present: warm, dry, intact, normal color Course Vital Signs Temperature 99.5 F 12/27/16 13:16 Pulse Rate 87 12/27/16 13:16 Respiratory Rate 18 12/27/16 13:16 Blood Pressure 98/56 12/27/16 13:16 O2 Sat by Pulse Oximetry 95 12/27/16 13:16 Temperature 99.5 F 12/27/16 13:16 Pulse Rate 87 12/27/16 13:16 Respiratory Rate 17 12/27/16 13:56 Blood Pressure 98/56 12/27/16 13:16 O2 Sat by Pulse Oximetry 94 12/27/16 13:56 Oxygen Delivery Oxygen Delivery Nasal Cannula Shortness of Breath/Dyspnea - MDM Narrative Medical decision making narrative: Time 1410: I discussed the case with Dr. Huynh, patient will be admitted to the hospitalist service for ongoing treatment. - Medical Records Medical records reviewed: Yes I reviewed the patient's medical records. - Lab Data Lab results reviewed: Yes I reviewed the patient's lab results. Result diagrams: 12/27/16 13:35 12/27/16 13:35 Lab Results 12/27/16 12/27/16 12/27/16 Range/Units 13:35 13:35 13:35 WBC 5.7 (4.3-11.1) K/mcL RBC 4.28 (4.19-5.50) M/mcL Hgb 13.5 (12.9-16.9) g/dL Hct 40.5 (37.5-50.1) % MCV 94.6 (83.0-100.0) fL MCH 31.5 (28.0-33.3) pg MCHC 33.3 (31.6-35.5) g/dL RDW 13.6 (11.5-14.5) % Plt Count 155 (140-400) K/mcL MPV 10.3 (9.4-12.4) fL Immature Gran % 0.2 (0-4) % Seg Neutrophils % 67.1 % Lymphocytes % 20.9 % Monocytes % 6.4 % Eosinophils % 4.7 % Basophils % 0.7 % Neutrophils # 3.9 (1.6-8.9) K/mcL Lymphocytes # 1.2 (0.6-4.6) K/mcL Monocytes # 0.4 (0.0-1.3) K/mcL Eosinophils # 0.3 (0.0-0.6) K/mcL Basophils # 0.0 (0.0-0.2) K/mcL Sodium 140 (136-145) mEq/L Potassium 3.6 (3.5-4.5) mEq/L Chloride 101 (98-109) mEq/L Carbon Dioxide 29 (19-29) mEq/L BUN 17 (8-26) mg/dL Creatinine 0.98 (0.72-1.25) mg/dL Est GFR ( Amer) > 60 (> 60) Est GFR (Non-Af Amer) > 60 (> 60) BUN/Creatinine Ratio 17 (6-26) Glucose 91 (70-99) mg/dL Calculated Osmolality 291 (280-300) Calcium 9.4 (8.6-10.8) mg/dL Troponin I 0.00 (0-0.03) ng/mL B-Natriuretic Peptide (0-100) pg/mL 12/27/16 Range/Units 13:35 WBC (4.3-11.1) K/mcL RBC (4.19-5.50) M/mcL Hgb (12.9-16.9) g/dL Hct (37.5-50.1) % MCV (83.0-100.0) fL MCH (28.0-33.3) pg MCHC (31.6-35.5) g/dL RDW (11.5-14.5) % Plt Count (140-400) K/mcL MPV (9.4-12.4) fL Immature Gran % (0-4) % Seg Neutrophils % % Lymphocytes % % Monocytes % % Eosinophils % % Basophils % % Neutrophils # (1.6-8.9) K/mcL Lymphocytes # (0.6-4.6) K/mcL Monocytes # (0.0-1.3) K/mcL Eosinophils # (0.0-0.6) K/mcL Basophils # (0.0-0.2) K/mcL Sodium (136-145) mEq/L Potassium (3.5-4.5) mEq/L Chloride (98-109) mEq/L Carbon Dioxide (19-29) mEq/L BUN (8-26) mg/dL Creatinine (0.72-1.25) mg/dL Est GFR ( Amer) (> 60) Est GFR (Non-Af Amer) (> 60) BUN/Creatinine Ratio (6-26) Glucose (70-99) mg/dL Calculated Osmolality (280-300) Calcium (8.6-10.8) mg/dL Troponin I (0-0.03) ng/mL B-Natriuretic Peptide 23 (0-100) pg/mL ITS Impressions Chest X-Ray 12/27/16 13:16 IMPRESSION: 1. No active pulmonary disease. D/ / Dante Jang MD / Dante Jang MD Interpreting Provider: Dante Jang MD - Radiology Data Radiology results reviewed: Yes I reviewed the patient's radiology results. - EKG Data EKG attestation: Yes I reviewed and interpreted this EKG. EKG shows normal: Reports: sinus rhythm (Normal sinus rhythm with a rate of 86. Nonspecific changes without evidence of acute ST segment or T-wave change.)
[2016-12-27 13:46] LABS: Basophils % 0.7 %; Eosinophils # 0.3 K/mcL (0.0-0.6); Eosinophils % 4.7 %; Hematocrit 40.5 % (37.5-50.1); Hemoglobin 13.5 g/dL (12.9-16.9); Immature Granulocytes % 0.2 % (0-4); Lymphocytes # 1.2 K/mcL (0.6-4.6); Lymphocytes % 20.9 %; Mean Corpuscular HGB Conc 33.3 g/dL (31.6-35.5); Mean Corpuscular Hemoglobin 31.5 pg (28.0-33.3); Mean Corpuscular Volume 94.6 fL (83.0-100.0); Mean Platelet Volume 10.3 fL (9.4-12.4); Monocytes # 0.4 K/mcL (0.0-1.3); Monocytes % 6.4 %; Neutrophils # 3.9 K/mcL (1.6-8.9); Platelet Count 155 K/mcL (140-400); Red Blood Count 4.28 M/mcL (4.19-5.50); Red Cell Distribution Width 13.6 % (11.5-14.5); Segmented Neutrophils % 67.1 %
[2016-12-27 14:00] LABS: BUN/Creatinine Ratio 17 (6-26); Blood Urea Nitrogen 17 mg/dL (8-26); Calcium 9.4 mg/dL (8.6-10.8); Carbon Dioxide 29 mEq/L (19-29); Chloride 101 mEq/L (98-109); Glucose 91 mg/dL (70-99); Osmolality,Calculated 291 (280-300); Potassium 3.6 mEq/L (3.5-4.5); Sodium 140 mEq/L (136-145); eGFR For African Americans > 60 (> 60); eGFR For Non-African Americans > 60 (> 60)
[2016-12-27] MEDS ORDERED: Naloxone 0.4 MG/ML INJ IVP PRN (14:11)
[2016-12-27] MEDS ORDERED: *HR* HYDROcodone/Acet 5/325 mg TABLET PO PRN (15:41)
[2016-12-27] MEDS ORDERED: Albuterol 2.5 MG/3 ML NEBULIZER IH PRN (16:51)
--- NOTE | 2016-12-27 19:05 | Internal Med History&Physical ---
Date of Encounter: 12/27/16 Time of Encounter: 18:35 Assessment and Plan (1) Acute exacerbation of chronic obstructive airways disease Current visit: Yes Status: Acute He reports his dyspnea has slightly improved since being seen in emergency room. He states he "does not feel safe at home" but cannot specify any detail what he feels is dangerous. He has been started on Levaquin and Solu-Medrol. Will reevaluate tomorrow (2) Low TSH level Current visit: Yes Status: Acute TSH was 0.163 on 09/13/2016. We will recheck in a.m. Internal Medicine - H&P: HPI Chief complaint: Dyspnea Admitted From: Home Plans for Post Hospital Care: Home History of present illness: Mr. Brady is a 71 year old male came to emergency room complaining of increasing dyspnea over the previous week. Reports a cough with clear sputum production. He is unaware of missing any doses of his home inhalers/ nebulizers. He was evaluated in emergency room and felt to have exacerbation of COPD. He was admitted to [facility] for ongoing care needs. His respiratory history significant for having smoked from age [age] up to 5 packs per day. He states he began smoking again approximate one month ago and now smokes 3 packs per day. He states he had PFTs at [facility] approximately 2002 but does not know results. He wears oxygen 24/7 for COPD. He thinks he has been tested for SIMON in the past but does not wear CPAP/BiPAP. He had chest CT August 2016 which showed no evidence of malignancy. He was hospitalized [facility] approximately 5 weeks ago and was discharged to [facility]. He states he has been home from there for at least 3-4 weeks. Past Med Surg Social Fam HX - Past Medical History Medical history: arthritis, COPD, diabetes, fibromyalgia, GERD, hyperlipidemia, hypertension, osteoporosis, renal disease Psychiatric history: anxiety, depression, other - Past Surgical History Surgical History: appendectomy, cholecystectomy, prostatectomy - Social History Smoking Status: Heavy tobacco smoker Smokeless Tobacco Status: No Alcohol use: rarely Drug use: none Internal Medicine - H&P: Meds Gabapentin [Neurontin] 600 mg PO BID 03/04/15 [History] GlipiZIDE [Glucotrol] 5 mg PO 0800 03/04/15 [History] Hydrocodone/Acetaminophen [[place] 5-325 Tablet] 1 tab PO Q6H PRN 03/04/15 [ History] Liraglutide [Victoza 2-Nash] 1.2 mg SQ DAILY 03/04/15 [History] Lisinopril [Zestril] 2.5 mg PO DAILY 03/04/15 [History] Omeprazole [PriLOSEC] 20 mg PO DAILY 03/04/15 [History] Paroxetine [Paxil] 30 mg PO DAILY 03/04/15 [History] Terazosin [Hytrin] 2 mg PO HS 03/04/15 [History] Oxygen 2 l NS AD 05/07/16 [History] Albuterol Neb [Proventil Neb] 2.5 mg IH Q4H PRN 09/13/16 [History] Albuterol Sulfate [Ventolin Hfa] 2 puff IH Q4H PRN 09/13/16 [History] Fluticasone/Salmeterol [Advair 500-50 Diskus] 1 puff IH BID 09/13/16 [History] Pramipexole [Mirapex] 0.25 mg PO DAILY 09/13/16 [History] Roflumilast [Daliresp] 500 mcg PO DAILY 09/13/16 [History] Allergies risperidone [From Risperdal] Allergy (Verified 05/07/16 11:36) Drowsy tramadol Allergy (Verified 05/07/16 11:36) Drowsy prednisone Adverse Reaction (Verified 12/27/16 14:09) Agitated All Systems PM: A 10-system review of systems was performed and is negative for pertinent findings except as documented above in the HPI. Review of systems: Review of systems from his September [address] [facility] hospitalization were reviewed and revised as below. Gen.: His weight has decreased from approximately 96 kg at a February 2015 [facility] hospitalization to 80.853 kg today. Cardiovascular: He has history of hypertension but denies MS heart failure angina DVT or pulmonary embolus. He claims he had a heart catheter approximate 2008 which was unremarkable. Respiratory: As per history of present illness GI: He has been told he has an enlarged liver and he has occasional GERD symptoms. He is status post appendectomy and cholecystectomy. He denies disorder with his exocrine pancreas. : He has had hematuria in the past with urinary tract infections. He has BPH and had TUR approximately 2002. He has been diagnosed with CKD3 and follows with a nephrology practice in [place]. Neurologic: He denies large distribution strokes or seizures. He states he has RLS and DPN. Endocrine: He was diagnosed with DM 2 approximately 1997. He has hyperlipidemia and vitamin D deficiency but no known thyroid disease. Hematology oncology: He has had no history of blood disorders or cancers. He was found to be anemic in the emergency room February 2015 which has resolved [place] skeletal: He has a diagnosis of DJD and fibromyalgia. He is uncertain if he has osteoporosis. Psychiatric: He has a history of depression but no significant anxiety. - Constitutional Vitals: Temp Pulse Resp BP Pulse Ox 98.2 F 79 16 120/63 91 12/27/16 18:40 12/27/16 18:40 12/27/16 18:40 12/27/16 18:40 12/27/16 18:40 Exam: Gen.: He is a well-developed well-nourished male who appears in no severe distress at present time HEENT: Head is atraumatic and normocephalic. Eyes: EOMI. There is no scleral icterus. Mouth: Mucosa is moist. Neck: Supple and nontender. There is no thyromegaly or adenopathy noted. Heart: Regular without murmurs gallops or ectopics Lungs: No wheezes or crackles are heard. Abdomen: Soft and nontender. No masses or guarding are noted. Extremities: There is no cyanosis edema or clubbing noted. Dorsalis peas and posttibial pulses are trace to 1+ palpable bilaterally. Neurologic: Mental status: He is talkative and seems to be a reliable historian. Cranial nerves: He has a disconjugate gaze with left esotropia and right eye dominant. He will correct to focus with the left eye when the right eye is covered. Smile is symmetric. Forehead wrinkles bilaterally. Tongue protrudes midline. Motor: There is no pronator drift. Cerebellar: Finger to nose is intact bilaterally. Skin: Warm and dry Internal Med - H&P Results - Labs CBC & Chem 7: 12/27/16 13:35 12/27/16 13:35
[2016-12-27] MEDS: Nicotine 21 MG PATCH.TD24 TD SCH (20:07)
[2016-12-27] MEDS: Gabapentin 300 MG CAPSULE PO SCH (20:08)
[2016-12-28 05:55] LABS: Basophils % 0.2 %; Hematocrit 38.5 % (37.5-50.1); Hemoglobin 13.2 g/dL (12.9-16.9); Immature Granulocytes % 0.5 % (0-4); Lymphocytes # 0.8 K/mcL (0.6-4.6); Mean Corpuscular HGB Conc 34.3 g/dL (31.6-35.5); Mean Corpuscular Hemoglobin 31.6 pg (28.0-33.3); Mean Corpuscular Volume 92.1 fL (83.0-100.0); Mean Platelet Volume 11.1 fL (9.4-12.4); Monocytes # 0.2 K/mcL (0.0-1.3); Monocytes % 3.8 %; Platelet Count 187 K/mcL (140-400); Red Blood Count 4.18 M/mcL (4.19-5.50); Red Cell Distribution Width 13.2 % (11.5-14.5); Segmented Neutrophils % 82.5 %
[2016-12-28] MEDS: Gabapentin 300 MG CAPSULE PO SCH ×2 (09:19→20:23)
[2016-12-28] MEDS: *HR* GlipiZIDE 5 MG TABLET PO SCH (09:19)
[2016-12-28] MEDS: levoFLOXacin 500 MG TABLET PO SCH (09:20)
[2016-12-28] MEDS: Nicotine 21 MG PATCH.TD24 TD SCH (09:23)
--- NOTE | 2016-12-28 17:13 | Internal Med Progress Note ---
Date of Encounter: 12/28/16 Time of Encounter: 17:00 - Assessment and plan (1) Acute exacerbation of chronic obstructive airways disease Current Visit: Yes Status: Acute Assessment and plan: December 28. Continue Levaquin and prn albuterol nebs. Will add lactobacillus and restart Advair/Symbicort. (2) Low TSH level Current Visit: Yes Status: Acute Assessment and plan: December 28. TSH remains low at 0.225. Will check free T4 in a.m. (3) Hypertension Current Visit: No Status: Chronic Assessment and plan: December 28. Blood pressure has risen significantly since admission. We will continue to monitor and adjust medication as needed. Qualifiers: Hypertension type: essential hypertension Qualified Code(s): I10 - Essential (primary) hypertension (4) Diabetes type 2, controlled Current Visit: No Status: Chronic Assessment and plan: December 28. Hemoglobin A1c was 6.3% on 09/20/2016. Continue glipizide and Accu- Cheks with SSI. Qualifiers: Diabetes mellitus complication status: without complication Diabetes mellitus alf insulin use: without alf use Qualified Code(s): E11.9 - Type 2 diabetes mellitus without complications - Subjective Interval history: December 28. He has no new complaints. He states his breathing is "okay" - Constitutional Vitals: Temp Pulse Resp BP Pulse Ox 98.4 F 79 16 180/76 93 12/28/16 15:31 12/28/16 15:31 12/28/16 15:31 12/28/16 15:31 12/28/16 15:31 Exam: He is resting comfortably on the side of the bed. Lungs show no wheezes or crackles. His affect is bright and cheerful. I reviewed his medications and lab results. Internal Medicine: Result - Labs CBC & Chem 7: 12/28/16 04:39 12/27/16 13:35 Labs: Short CBC 12/28/16 Range/Units 04:39 WBC 6.1 (4.3-11.1) K/mcL Hgb 13.2 (12.9-16.9) g/dL Hct 38.5 (37.5-50.1) % Plt Count 187 (140-400) K/mcL Neutrophils # 5.0 (1.6-8.9) K/mcL Consult Discharge Plan - Plan Referrals: Perla Gao MD [Primary Care Provider] - 1 week
[2016-12-28] MEDS: Lactobacillus 1 EACH CAP.SPRINK PO SCH (20:22)
--- NOTE | 2016-12-28 21:47 | Electrocardiograph Report ---
[facility] Test Date: 2016-12-27 Pat Name: Lety Brady Department: [id number] Room: [facility] Gender: M [place] Room Operator: [id number] : 1945 Requested By: Connor Tang Order Number: [id number] Reading MD: Bobo Vences MD Measurements Intervals Bland Rate: 86 P: 83 VA: 172 QRS: -13 QRSD: 94 T: 75 QT: 361 QTc: 405 Interpretive Statements SINUS RHYTHM NONSPECIFIC T-WAVE ABNORMALITY Electronically Signed On 12-28-2016 21:46:18 EDT by Bobo Vences MD
[2016-12-28] MEDS: Budesonide/Formoterol 160/4.5 MDI IH SCH (22:23)
[2016-12-29 04:58] LABS: Basophils % 0.8 %; Eosinophils # 0.2 K/mcL (0.0-0.6); Eosinophils % 3.3 %; Hemoglobin 13.3 g/dL (12.9-16.9); Immature Granulocytes % 0.4 % (0-4); Lymphocytes # 1.8 K/mcL (0.6-4.6); Lymphocytes % 34.2 %; Mean Corpuscular HGB Conc 34.1 g/dL (31.6-35.5); Mean Platelet Volume 10.1 fL (9.4-12.4); Monocytes # 0.3 K/mcL (0.0-1.3); Monocytes % 6.4 %; Neutrophils # 2.8 K/mcL (1.6-8.9); Platelet Count 155 K/mcL (140-400); Red Blood Count 4.15 M/mcL (4.19-5.50); Red Cell Distribution Width 13.3 % (11.5-14.5); Segmented Neutrophils % 54.9 %
[2016-12-29] MEDS: Lactobacillus 1 EACH CAP.SPRINK PO SCH ×2 (08:18→20:23)
[2016-12-29] MEDS: *HR* GlipiZIDE 5 MG TABLET PO SCH (08:19)
[2016-12-29] MEDS: levoFLOXacin 500 MG TABLET PO SCH (08:19)
[2016-12-29] MEDS: Gabapentin 300 MG CAPSULE PO SCH ×2 (08:26→20:23)
[2016-12-29] MEDS: Nicotine 21 MG PATCH.TD24 TD SCH (08:26)
[2016-12-29] MEDS: Budesonide/Formoterol 160/4.5 MDI IH SCH ×2 (10:51→22:33)
--- NOTE | 2016-12-29 12:22 | Internal Med Progress Note ---
Date of Encounter: 12/29/16 Time of Encounter: 12:10 - Assessment and plan (1) Acute exacerbation of chronic obstructive airways disease Current Visit: Yes Status: Acute Assessment and plan: December 28. Continue Levaquin and prn albuterol nebs. Will add lactobacillus and restart Advair/Symbicort. December 29. Continue present regimen. Anticipate discharge to [facility] tomorrow (2) Low TSH level Current Visit: Yes Status: Acute Assessment and plan: December 28. TSH remains low at 0.225. Will check free T4 in a.m. December 29. Free T4 is pending. (3) Hypertension Current Visit: No Status: Chronic Assessment and plan: December 28. Blood pressure has risen significantly since admission. We will continue to monitor and adjust medication as needed. December 29. Blood pressure shows significant fluctuation. Continue Zestril and Hytrin Qualifiers: Hypertension type: essential hypertension Qualified Code(s): I10 - Essential (primary) hypertension (4) Diabetes type 2, controlled Current Visit: No Status: Chronic Assessment and plan: December 28. Hemoglobin A1c was 6.3% on 09/20/2016. Continue glipizide and Accu- Cheks with SSI. 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 He has no new complaints. He states his breathing is "okay" December 29. He has no new complaints. - Constitutional Vitals: Temp Pulse Resp BP Pulse Ox 97.9 F 67 14 154/79 96 12/29/16 10:44 12/29/16 10:44 12/29/16 10:44 12/29/16 10:44 12/29/16 10:44 Exam: He is resting comfortably in bed. Heart is regular without murmurs gallops or ectopics. Lungs are clear. I reviewed his medications and lab results. Internal Medicine: Result - Labs CBC & Chem 7: 12/29/16 04:45 12/27/16 13:35 Labs: Short CBC 12/29/16 Range/Units 04:45 WBC 5.1 (4.3-11.1) K/mcL Hgb 13.3 (12.9-16.9) g/dL Hct 39.0 (37.5-50.1) % Plt Count 155 (140-400) K/mcL Neutrophils # 2.8 (1.6-8.9) K/mcL Consult Discharge Plan - Plan Referrals: Perla Gao MD [Primary Care Provider] - 1 week
[2016-12-30] MEDS: Lactobacillus 1 EACH CAP.SPRINK PO SCH (08:33)
[2016-12-30] MEDS: levoFLOXacin 500 MG TABLET PO SCH (08:34)
[2016-12-30] MEDS: *HR* GlipiZIDE 5 MG TABLET PO SCH (08:34)
[2016-12-30] MEDS: Gabapentin 300 MG CAPSULE PO SCH (08:34)
[2016-12-30] MEDS: Nicotine 21 MG PATCH.TD24 TD SCH (08:39)
[2016-12-30] MEDS: Budesonide/Formoterol 160/4.5 MDI IH SCH (10:01)
[2016-12-30 11:09] VITALS: BP 100/59
--- NOTE | 2016-12-30 14:11 | Discharge Summary ---
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 Qualified Code(s): E11.9 - Type 2 diabetes mellitus without complications - Discharge Medications Prescriptions: HYDROcodone/Acet 5/325 mg [[place] 5-325 mg] 1 tab PO Q6H PRN #28 tab PRN Reason: Pain Home Medications: Gabapentin [Neurontin] 600 mg PO BID 03/04/15 [History] GlipiZIDE [Glucotrol] 5 mg PO 0800 03/04/15 [History] Hydrocodone/Acetaminophen [[place] 5-325 Tablet] 1 tab PO Q6H PRN 03/04/15 [ History] Liraglutide [Victoza 2-Nash] 1.2 mg SQ DAILY 03/04/15 [History] Lisinopril [Zestril] 2.5 mg PO DAILY 03/04/15 [History] Omeprazole [PriLOSEC] 20 mg PO DAILY 03/04/15 [History] Paroxetine [Paxil] 30 mg PO DAILY 03/04/15 [History] Terazosin [Hytrin] 2 mg PO HS 03/04/15 [History] Oxygen 2 l NS AD 05/07/16 [History] Albuterol Neb [Proventil Neb] 2.5 mg IH Q4H PRN 09/13/16 [History] Albuterol Sulfate [Ventolin Hfa] 2 puff IH Q4H PRN 09/13/16 [History] Fluticasone/Salmeterol [Advair 500-50 Diskus] 1 puff IH BID 09/13/16 [History] Pramipexole [Mirapex] 0.25 mg PO DAILY 09/13/16 [History] Roflumilast [Daliresp] 500 mcg PO DAILY 09/13/16 [History] Budesonide/Formoterol 160/4.5 [Symbicort 160/4.5] 1 puff IH BIDR 12/30/16 [Rx] HYDROcodone/Acet 5/325 mg [[place] 5-325 mg] 1 tab PO Q6H PRN #28 tab 12/30/16 [Rx ] Nicotine Patch [Nicoderm] 21 mg TD DAILY 12/30/16 [Rx] Allergies/Adverse Reactions: Allergies risperidone [From Risperdal] Allergy (Verified 05/07/16 11:36) Drowsy tramadol Allergy (Verified 05/07/16 11:36) Drowsy prednisone Adverse Reaction (Verified 12/27/16 14:09) Agitated Date of admission: 12/27/16 14:36 Primary care physician: Perla Gao Consults: 12/27/16 18:34 Consult to Nutrition [CONS] Routine Comment: Consulting Provider: NUTRITION Reason for Dietary Consult: MST Score Consult to Service Officer [CONS] Routine Reason for SW Consult: D/C planning - Patient Status Disposition: Transfer SNF Condition: Good Functional capacity at discharge: independent ambulation Overall status at discharge: patient is progressing back to baseline - Discharge Instructions Follow Up With: Peral Gao MD [Primary Care Provider] - 1 week - Diet and Activity Activity: resume usual activities as tolerated Hospital course: Mr. Brady is a 71 year old male who came to emergency room complaining of increasing dyspnea over the previous week. Reports a cough with clear sputum production. He is unaware of missing any doses of his home inhalers/ nebulizers. He was evaluated in emergency room and felt to have exacerbation of COPD. He was admitted to [facility] floor for ongoing care needs. Initial orders were written by the ER physician. I saw him on December 27 and performed a history and physical. He was started on Levaquin and given a dose of Solu-Medrol. When I saw him he stated his breathing was improved but not back to baseline. He remained in observation bed until December 30 when arrangements were complete for him to be discharged to [facility] where he will follow with Dr. Gao. TSH was ordered to evaluate previously documented low TSH level. The result was still slightly low at 0.225. Free T4 was normal at 0.87. I will let Dr. Gao follow-up on this. Folate level returned normal at 16.3. Hemoglobin A1c was satisfactory at 6.0. - Time Spent with Patient Total time spent providing and/or coordinating discharge services: - Constitutional Vitals: Temp Pulse Resp BP Pulse Ox 98.7 F 61 16 100/59 96 12/30/16 11:08 12/30/16 11:08 12/30/16 11:08 12/30/16 11:08 12/30/16 11:08
--- NOTE | 2016-12-30 14:17 | Physician Discharge Referral ---
Extended[facility] Referral Info Transfer To: [place] [facility] Provider in Charge: Lino Provider in Charge after Transfer: PCP Aggie) - Diagnosis (1) Acute exacerbation of chronic obstructive airways disease Priority: Primary Status: Acute (2) Low TSH level Priority: Secondary Status: Acute (3) Hypertension Priority: Secondary Status: Chronic (4) Diabetes type 2, controlled Priority: Secondary Status: Chronic Prognosis: Good Aware of Diagnosis: Patient, Family Aware of Prognosis: Patient, Family - Transfer Medications Prescriptions: HYDROcodone/Acet 5/325 mg [Kent 5-325 mg] 1 tab PO Q6H PRN #28 tab PRN Reason: Pain Home Medications: Gabapentin [Neurontin] 600 mg PO BID 03/04/15 [History] GlipiZIDE [Glucotrol] 5 mg PO 0800 03/04/15 [History] Hydrocodone/Acetaminophen [Kent 5-325 Tablet] 1 tab PO Q6H PRN 03/04/15 [ History] Liraglutide [Victoza 2-Nash] 1.2 mg SQ DAILY 03/04/15 [History] Lisinopril [Zestril] 2.5 mg PO DAILY 03/04/15 [History] Omeprazole [PriLOSEC] 20 mg PO DAILY 03/04/15 [History] Paroxetine [Paxil] 30 mg PO DAILY 03/04/15 [History] Terazosin [Hytrin] 2 mg PO HS 03/04/15 [History] Oxygen 2 l NS AD 05/07/16 [History] Albuterol Neb [Proventil Neb] 2.5 mg IH Q4H PRN 09/13/16 [History] Albuterol Sulfate [Ventolin Hfa] 2 puff IH Q4H PRN 09/13/16 [History] Fluticasone/Salmeterol [Advair 500-50 Diskus] 1 puff IH BID 09/13/16 [History] Pramipexole [Mirapex] 0.25 mg PO DAILY 09/13/16 [History] Roflumilast [Daliresp] 500 mcg PO DAILY 09/13/16 [History] Budesonide/Formoterol 160/4.5 [Symbicort 160/4.5] 1 puff IH BIDR 12/30/16 [Rx] HYDROcodone/Acet 5/325 mg [Kent 5-325 mg] 1 tab PO Q6H PRN #28 tab 12/30/16 [Rx ] Nicotine Patch [Nicoderm] 21 mg TD DAILY 12/30/16 [Rx] Allergies/Adverse Reactions: Allergies risperidone [From Risperdal] Allergy (Verified 05/07/16 11:36) Drowsy tramadol Allergy (Verified 05/07/16 11:36) Drowsy prednisone Adverse Reaction (Verified 12/27/16 14:09) Agitated - Respiratory Orders Oxygen / L per min (O2 at 2 L/m by nasal cannula when necessary to keep sat greater than 90%) Smoking Cessation: Smoking cessation has been advised. For more information, call the [employer] Tobacco Quit Line at 8-527-TGRV-NOW. - Mobility Orders Ambulate - Rehabiliation Orders Rehab Potential: Good Rehab Orders: Evaluation for Physical Therapy, Evaluation for Occupational Therapy CERTIFICATION: I certify that the transfer of the above named patient to an Extended Care Facility is necessary for the continuing treatment of the diagnosis listed. The above information is true and accurate reflection of patient's current condition. Confidential - Redisclosure prohibited without a patient's written consent.
== END 2016-12-30 15:15 ==
LOC: INPPIK 13:14 → EMEROOPIK 13:14 → INPPIK 14:54
PROVIDERS: ADMIT Internal Medicine; ATTEND Internal Medicine